=== PATIENT | male | born 1980 | race Caucasian/White ===

== ENCOUNTER → 2019-04-30 11:15 | Outpatient (CLI) | payer OTHER, SELFPAY ==
--- NOTE | ~2019-04-30 | XR_ITS ---
XR hand RT min 3V DATE: 04/30/2019 11:37 INDICATION: Injury, pain TECHNIQUE: 3 views COMPARISON: None FINDINGS: There is a virtually nondisplaced fracture of the neck of the fifth metacarpal bone consist ent with boxer's fracture. No other fracture or dislocation or other significant bony abnormality. IMPRESSION: Boxer's fracture neck of fifth metacarpal bone Reviewed, dictated and finalized at location A.
== END ==
PROVIDERS: PCP Nurse Practitioner; Visit Provider Nurse Practitioner
DX: S62.336A Displaced fracture of neck of fifth metacarpal bone, right hand, initial encounter for closed fracture (principal); X58.XXXA Exposure to other specified factors, initial encounter
CPT/HCPCS: 73130

== ENCOUNTER 2019-12-08 11:52 | Outpatient (NON) | payer OTHER, SELFPAY ==
[2019-12-08 23:56] LABS: SARS-CoV-2 RNA PCR Negative
== END 2019-12-08 11:53 ==
LOC: ANHCOVIDDT 11:53
PROVIDERS: PCP Nurse Practitioner; Visit Provider Nurse Practitioner
DX: Z20.828 Contact with and (suspected) exposure to other viral communicable diseases (principal)
CPT/HCPCS: 87635; C9803; U0003

== ENCOUNTER 2022-04-01 09:21 | Outpatient (CLI) | payer OTHER, SELFPAY ==
--- NOTE | 2022-04-01 09:34 | EST_ITS ---
Patient Info Name: Bam Sandhu Age: 42 years : 1980 Gender: Male Ht: 69 in Wt: 185 lbs BSA: 2.04 m2 HR: 65 bpm BP: 137 / 74 mmHg Heart Rhythm: Sinus Rhythm Exam Date: 04/01/2022 9:46 AM Exam Location: [facility] Stress Patient Status: Outpatient Admit Date: 04/01/2022 Staff Ordering Physician: Linda Enriquez NP Attending Provider: Linda Enriquez NP Exercise Technologist: Bethany Juarez CT Exercise Physician: Valdo Orr DO Exam Type: CA stress test treadmill Study Info Indications R07.89 - Other chest pain A treadmill exercise stress test was performed. Summary 1. 1. Negative Julián exercise stress test for ischemic ST changes by ECG criteria. 2. 2. Good functional capacity, achieving 12 METs of workload. 3. 3. Hypertensive response to exercise. 4. 4. Appropriate HR response to exercise. 5. 5. Appropriate HR recovery at 1 minute post exercise. 6. 6. No imaging with stress testing. 7. 7. Patient informed of the above results. Protocol: Julián Stress ECG Details Stage: REST Duration (min): 1 min : 6 sec Speed (mph): 0.0 Grade (%): 0 HR (bpm): 65 SBP (mmHg): 137 DBP (mmHg): 74 METS: --- Stage: REST Duration (min): 12 min : 13 sec Speed (mph): 0.0 Grade (%): 0 HR (bpm): 72 SBP (mmHg): 137 DBP (mmHg): 74 METS: --- Stage: STAGE 1 Duration (min): 1 min : 0 sec Speed (mph): 1.7 Grade (%): 10 HR (bpm): 91 SBP (mmHg): 137 DBP (mmHg): 74 METS: --- Stage: STAGE 1 Duration (min): 2 min : 0 sec Speed (mph): 1.7 Grade (%): 10 HR (bpm): 93 SBP (mmHg): 137 DBP (mmHg): 74 METS: --- Stage: STAGE 1 Duration (min): 3 min : 0 sec Speed (mph): 1.7 Grade (%): 10 HR (bpm): 95 SBP (mmHg): 149 DBP (mmHg): 70 METS: --- Stage: STAGE 2 Duration (min): 1 min : 0 sec Speed (mph): 2.5 Grade (%): 12 HR (bpm): 103 SBP (mmHg): 149 DBP (mmHg): 70 METS: --- Stage: STAGE 2 Duration (min): 2 min : 0 sec Speed (mph): 2.5 Grade (%): 12 HR (bpm): 107 SBP (mmHg): 165 DBP (mmHg): 56 METS: --- Stage: STAGE 2 Duration (min): 3 min : 0 sec Speed (mph): 2.5 Grade (%): 12 HR (bpm): 106 SBP (mmHg): 165 DBP (mmHg): 56 METS: --- Stage: STAGE 3 Duration (min): 1 min : 0 sec Speed (mph): 3.4 Grade (%): 14 HR (bpm): 124 SBP (mmHg): 166 DBP (mmHg): 57 METS: --- Stage: STAGE 3 Duration (min): 2 min : 0 sec Speed (mph): 3.4 Grade (%): 14 HR (bpm): 126 SBP (mmHg): 166 DBP (mmHg): 57 METS: --- Stage: STAGE 3 Duration (min): 3 min : 0 sec Speed (mph): 3.4 Grade (%): 14 HR (bpm): 130 SBP (mmHg): 184 DBP (mmHg): 56 METS: --- Stage: STAGE 4 Duration (min): 1 min : 0 sec Speed (mph): 4.2 Grade (%): 16 HR (bpm): 149 SBP (mmHg): 184 DBP (mmHg): 56 METS: ---
== END 2022-04-01 09:22 | disposition home or self-care (01) ==
PROVIDERS: PCP Family Medicine; Visit Provider Nurse Practitioner
DX: R07.89 Other chest pain (principal)
CPT/HCPCS: 93017

== ENCOUNTER → 2022-07-08 11:21 | Outpatient (CLI) | payer SELFPAY ==
--- NOTE | ~2022-07-08 | XR_ITS ---
EXAM: XR hand LT 2V DATE: 07/08/2022 11:59 HISTORY: M79.642 - Pain in left hand, left pinky injury . COMPARISON: None available. FINDINGS: Normal mineralization. Comminuted fracture of the distal fifth metacarpal, with mild anter ior and lateral angulation. No lytic or blastic lesion. Joint spaces and physes are maintained. No er osion or periosteal change. Soft tissues within normal limits. IMPRESSION: Comminuted mildly angulated fracture of the distal left fifth metacarpal. Reviewed, dictated and finalized at location K. IMPRESSION: Comminuted mildly angulated fracture of the distal left fifth metac arpal.
== END ==
PROVIDERS: PCP Nurse Practitioner Family; Visit Provider Nurse Practitioner Family
DX: S62.397A Other fracture of fifth metacarpal bone, left hand, initial encounter for closed fracture (principal); X58.XXXA Exposure to other specified factors, initial encounter
CPT/HCPCS: 73120

== ENCOUNTER → 2022-08-22 08:49 | Outpatient (CLI) | payer SELFPAY ==
--- NOTE | ~2022-08-22 | XR_ITS ---
Left Hand Technique: PA, oblique, and lateral views were obtained. Clinical History: Fifth metacarpal fracture follow-up COMPARISON: 07/08/2022 Findings: There is been minimal interval healing of fracture of the distal fifth metacarpal neck. Oss eous alignment is unchanged. Joint spaces are preserved. Soft tissues are unremarkable. Impression: Minimal interval routine healing of distal fifth metacarpal fracture. Osseous alignment is unchanged. Reviewed, dictated and finalized at location M. Impression: Minimal interval routine healing of distal fifth metacarpal fracture. Osseous a lignment is unchanged.
== END ==
PROVIDERS: PCP Nurse Practitioner Family; Visit Provider Nurse Practitioner Family
DX: S62.307D Unspecified fracture of fifth metacarpal bone, left hand, subsequent encounter for fracture with routine healing (principal); X58.XXXD Exposure to other specified factors, subsequent encounter
CPT/HCPCS: 73130

== ENCOUNTER → 2022-12-24 08:25 | Outpatient (CLI) | payer SELFPAY ==
--- NOTE | ~2022-12-24 | XR_ITS ---
EXAMINATION: XR_RIBSBI_CR INDICATION: Bilateral rib pain after fall TECHNIQUE: 3 views of the bilateral ribs were obtained. COMPARISON: 06/16/2014 FINDINGS: The lungs are free of acute opacities. No pleural effusion or pneumothorax. There is a nond isplaced acute anterolateral fracture of the right ninth rib. IMPRESSION: 1. Acute anterolateral fracture of the right ninth rib. 2. No acute cardiopulmonary abnormality. Reviewed, dictated and finalized at location L. 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
== END ==
PROVIDERS: PCP Nurse Practitioner Family; Visit Provider Nurse Practitioner Family
DX: S22.32XA Fracture of one rib, left side, initial encounter for closed fracture (principal); W19.XXXA Unspecified fall, initial encounter
CPT/HCPCS: 71110

== ENCOUNTER 2023-04-06 02:31 | Emergency (ER) | payer OTHER, SELFPAY ==
--- NOTE | ~2023-04-06 | CT_ITS ---
EXAMINATION: CT chest abdomen pelvis wo con DATE: 04/06/2023 04:51 INDICATION: Right flank pain TECHNIQUE: Computed tomography (CT) of the chest, abdomen, and pelvis was performed without intraveno us contrast. Automated exposure control and iterative reconstruction technique were employed. The dos e-length product was 539.43 mGy-cm. COMPARISON: CT abdomen pelvis dated 05/09/2009 and chest radiograph dated 06/06/2014 FINDINGS: CHEST CT: There are a few <3 mm pulmonary nodules in the bilateral upper lobes which given size and patient age and likely benign sequela of granulomatous disease. No pneumonia, pulmonary edema, pleural effusion or pneumothorax. Heart size is normal. No pericardial effusion. Thoracic aorta is normal in caliber. No pathologically enlarged thoracic lymphadenopathy. Chronic mild anterior wedging at T9-T11. Healing fractures of the lateral right 9th and 10th ribs. ABDOMEN/PELVIS CT: Liver, gallbladder, spleen, pancreas and bilateral adrenal glands are normal. 1 mm stones at lower po le calyces of both kidneys. No ureteral stones or hydronephrosis. Bowels including the appendix are n ormal. Bladder is normal. No free intraperitoneal gas or fluid. No pathologically enlarged abdominal or pelvic lymphadenopathy. Bones are unremarkable. IMPRESSION: 1. Bilateral nonobstructing nephrolithiasis. 2. No acute cardiopulmonary disease or acute intra-abdominal/pelvic process. 3. Healing lateral right 9th and 10th rib fractures. Reviewed, dictated and finalized at location A. CTOR OF DISTANCE LEARNING
[2023-04-06 02:34] VITALS: BP 131/69; PULSE 89; RESP 16; TEMP 36.6; O2SAT 98
[2023-04-06 03:34] LABS: Basophils Absolute Auto 0.1 K/mm3 (0.0-0.1); Basophils Percent Auto 1.4 % (0.2-1.2); Eosinophils Absolute Auto 0.1 K/mm3 (0-0.3); Eosinophils Percent Auto 3.3 % (0-4.4); Hemoglobin 13.5 g/dL (14.0-18.0); Immature Granulocyte Absolute 0.01 K/mm3 (0.00-0.031); Immature Granulocyte Percent A 0.3 % (0-0.5); Lymphocytes Absolute Auto 1.72 K/mm3 (0.9-3.2); Lymphocytes Percent Auto 46.6 % (18.3-44.2); Mean Corpuscular HGB Conc 32.9 g/dl (32-36); Mean Corpuscular Hemoglobin 32.2 pg (26-34); Mean Corpuscular Volume 97.9 fl (80-100); Mean Platelet Volume 10.8 fl (7.4-10.4); Monocytes Absolute Auto 0.3 K/mm3 (0.1-0.6); Monocytes Percent Auto 7.9 % (2.6-8.5); Neutrophils Absolute Auto 1.5 K/mm3 (1.3-6.7); Neutrophils Percent Auto 40.5 % (45.5-73.1); Platelet Count Result 219 k/mm3 (150-375); Red Blood Count 4.19 M/mm3 (4.6-6.20); White Blood Count 3.7 K/mm3 (4.5-10.0)
[2023-04-06 03:48] LABS: Appearance Urine Clear (Clear); Bilirubin Urine Negative (Negative); Blood Urine Negative (Negative); Color Urine Yellow (Yellow); Glucose Urine UA Negative (Negative); Ketones Urine Trace mg/dL (Negative); Leukocyte Esterase Ur Negative LEU/UL (Negative); Nitrate Urine Negative (Negative); Protein Urine Negative (Negative); Specific Grav Ur 1.019 (1.001-1.035); Urobilinogen Urine 0.2 mg/dL (<2.0)
[2023-04-06 03:51] LABS: Add Urine Microscopic? NO
[2023-04-06 04:03] LABS: Alanine Aminotransferase 25 U/L (6-50); Albumin Level 4.6 g/dL (3.5-5.1); Alkaline Phosphatase 64 U/L (38-126); Anion Gap 13 mmol/L (8-16); Aspartate Amino Transferase 34 U/L (17-59); Bilirubin,Total 0.5 mg/dL (0.2-1.3); Blood Urea Nitrogen 13 mg/dL (9-20); Calcium 9.2 mg/dL (8.4-10.2); Carbon Dioxide 19 mmol/L (22-30); Chloride 107 mmol/L (98-107); Estimated CRCL calculation 116 ml/min; Estimated Glomerular Filt Rate > 60; Glucose 121 mg/dL (65-110); Lipase 115 U/L (23-300); Potassium 3.8 mmol/L (3.4-5.0); Sodium 139 mmol/L (137-145)
--- NOTE | 2023-04-06 04:42 | ED.ABDPAIN ---
HPI - Abdominal Pain General Chief Complaint: Abdominal Pain Stated Complaint: R flank pain Time Seen by Provider: 04/06/23 02:53 Source: patient Limitations: no limitations History of Present Illness HPI narrative: Patient is a 43-year-old male presents to the emergency department complaining of right flank pain. Patient states he fell off a ladder on December 18 and broke 2 ribs and his right lateral lower ribs and has been having similar pain like this since then. Patient notes he has had partially for flare ups in which she gets worse about every couple weeks and states that the pain started flaring up approximate 24 hours ago, gradually, constant, feels like a burning sensation, does not radiate, has not tried any medications for the pain, slightly worse with movements, slightly better with rest. Patient denies any recurrent injuries. Patient admits to being evaluated by his primary care physician for a regional rib fracture. Patient denies cough, fever, pain with deep inspiration, difficulty breathing, hematuria, urinary discomfort, diarrhea, melena, nausea, vomiting, numbness, weakness, history kidney stones. Patient notes that the pain from the rib fractures is never gone away completely but it seems to flare up every couple weeks. Related Data Allergies Allergy/AdvReac Type Severity Reaction Status Date / Time No Known Allergies Allergy Verified 01/01/23 16:09 Review of Systems Review of Systems: A 10 system review of systems was completed on the patient and is negative except for what is stated in the HPI. Nursing and ancillary documentation was reviewed. [facility] Past Medical History Medical History Chronic daily headache Fracture of metacarpal of left hand, closed GERD (gastroesophageal reflux disease) Heart palpitations Hyperlipidemia Traumatic injury of rib Social History Social History Smoking status: Never smoker Alcohol intake: current Alcohol use details: occasionnally Substance use: never Substance use type: does not use Lack of Transportation: No Lack of Food: Never True Current Housing: I Have Housing Concerned About Future Housing: No Difficulty Paying Gas/Electric Bills: No Difficulty Paying for Meds: No Currently Unemployed: No Education: Bachelor's Degree Difficulty w/ Childcare or Family Care: No Living arrangements: with family Occupation/Education: occupation Gender identity (if verbalized by the patient): Male Sexual Orientation (if Verbalized by the Patient): Straight or Heterosexual Agree to blood products: Yes Comments At time of signature, I have reviewed and agree with nursing past medical, surgical, social and family history unless otherwise noted. Please see the nursing chart for further information. There is no relevant family history pertinent to the presenting complaint. Exam Narrative: CONST: No acute distress. Well nourished. HENMT: Head is normocephalic and atraumatic. Moist mucous membranes. No posterior oropharynx erythema. EYES: No conjunctival icterus, injection, or pallor. PERRL. NECK: No meningeal signs. RESP: Able to speak in full sentences. Normal respiratory effort. CTAB. CARDIO: Regular rate. Regular rhythm. 2+ DP and radial pulses bilaterally. GI: Nondistended. No tenderness to palpation. Soft. No palpable masses or hernias. : No CVA tenderness to palpation. SKIN: No rashes or lesions noted on exposed skin. NEURO: Oriented x3. Moves all extremities. EXTREM/MSK/BACK: No pedal edema. Chest wall is without crepitus or tenderness to palpation or palpable deformities. PSYCH: Normal affect. Course Vital Signs Vital signs: Vital Signs Temperature 97.9 F 04/06/23 02:34 Pulse Rate 89 04/06/23 02:34 Respiratory Rate 16 04/06/23 02:34 Blood Pressure 131/69 04/06/23 02:34 Pulse Oximetr
--- NOTE | 2023-04-06 04:46 | ECG_ITS ---
Measurements Intervals [place] Rate: 80 P: 13 PA: 156 QRS: -33 QRSD: 96 T: 33 QT: 380 QTc: 438 Interpretive Statements SINUS RHYTHM LEFT AXIS DEVIATION [QRS AXIS < -30] BORDERLINE ECG NO PREVIOUS ECG AVAILABLE FOR COMPARISON Electronically Signed On 04-06-2023 8:11:20 [employer] by Parker Nicole M.D.
[2023-04-06] MEDS: KETOROLAC 15 MG/ML VIAL (*BKC) IV PUSH (04:54)
[2023-04-06] MEDS: HYDROcodone/acetaminophen (*CRX) 5-325 MG TABLET 1 TAB PO (04:54)
[2023-04-06] MEDS: LIDOCAINE 5% PATCH 1 PATCH TRANSDERM (05:56)
== END 2023-04-06 06:10 | disposition home or self-care (01) ==
PROVIDERS: Emergency Provider Student in an Organized Health Care Education/Training Program; PCP Nurse Practitioner Family
DX: S22.41XK Multiple fractures of ribs, right side, subsequent encounter for fracture with nonunion (principal); M48.54XA Collapsed vertebra, not elsewhere classified, thoracic region, initial encounter for fracture; E78.5 Hyperlipidemia, unspecified; K21.9 Gastro-esophageal reflux disease without esophagitis; R94.31 Abnormal electrocardiogram [ECG] [EKG]; N20.0 Calculus of kidney; W11.XXXD Fall on and from ladder, subsequent encounter
CPT/HCPCS: 36415; 71250; 74176; 80053; 81003; 83690; 85025; 93005; 96374; 99284; A9270; J1885

== ENCOUNTER 2023-05-21 09:35 | Outpatient (CLI) | payer OTHER, SELFPAY ==
--- NOTE | ~2023-05-21 | US_ITS ---
EXAMINATION: US right upper quadrant DATE: 05/21/2023 10:11 INDICATION: Right upper quadrant abdominal pain TECHNIQUE: Multiple grayscale and Doppler ultrasound images of the abdomen were obtained. COMPARISON: CT dated 04/06/2023 FINDINGS: The visualized pancreatic body is normal in appearance. The pancreatic head and tail are obscured. Li alex has normal echogenicity and contour, with a smooth surface. No liver lesion identified. No intrah epatic biliary duct dilation suspected. Portal venous flow was seen in the hepatopetal, normal direct ion and has normal Doppler waveform. Visualized proximal inferior vena cava is normal. The gallbladde r is normal in appearance. There is no cholelithiasis. The common bile duct measures 3 mm, which is normal. Sonographic Sheldon sign was reported as negative by the septic technician.Visualized portion of the right kidney demonstrates normal echogenicity and contour with no hydronephrosis. IMPRESSION: 1. Normal right upper quadrant ultrasound. Reviewed, dictated and finalized at location A.
== END 2023-05-21 09:36 | disposition home or self-care (01) ==
PROVIDERS: PCP Family Medicine; Visit Provider Family Medicine
DX: R10.11 Right upper quadrant pain (principal)
CPT/HCPCS: 76705

== ENCOUNTER 2023-12-29 16:49 | Outpatient (CLI) | payer OTHER, SELFPAY ==
[2023-12-29 17:41] LABS: Influenza A QL RT-PCR Negative (Negative); Influenza B QL RT-PCR Negative (Negative); RSV RNA, RT-PCR Negative (Negative); SARS-CoV-2 RNA PCR Negative (Negative)
== END 2023-12-29 16:50 | disposition home or self-care (01) ==
LOC: ANHLAB 16:51
PROVIDERS: PCP Family Medicine; Visit Provider Family Medicine
DX: J06.9 Acute upper respiratory infection, unspecified (principal); Z20.822 Contact with and (suspected) exposure to COVID-19
CPT/HCPCS: 87637

== ENCOUNTER 2024-01-26 01:45 | Day surgery (SDC) | payer OTHER, SELFPAY ==
[2023-12-26 10:28] VITALS: BMI 27.3
--- NOTE | 2024-01-05 12:34 | PC.NURSE ---
spoke with patient regarding rescheduled EGD. Updated patient with new date and times. Patient's only change to medical history is pneumonia. Medication list updated. No questions at this time.
[2024-01-26 06:48] VITALS: BP 122/73; PULSE 69; RESP 18; TEMP 35.9; O2SAT 100; BMI 26.9
[2024-01-26] MEDS: LACTATED RINGERS 1,000 ML 150 ML IV CONT (06:57)
--- NOTE | 2024-01-26 07:49 | PM.HPGS ---
History of Present Illness History of Present Illness Consent: Risks, benefits, and alternatives have been discussed and questions answered. Patient agrees to proceed with procedure. Chief complaint: chronic pain, epigastric pain, GERD Narrative: Bam Sandhu is a 43 year old male with intermittent epigastric pain, never had egd Review of Systems Review of Systems: All systems reviewed & are unremarkable except as noted in HPI and below PMFSH Past Medical History Medical History Chronic daily headache Fracture of metacarpal of left hand, closed GERD (gastroesophageal reflux disease) Heart palpitations Hyperlipidemia Traumatic injury of rib Social History Social History Smoking status: Never smoker Alcohol intake: current Drinks per week: 4 Alcohol use details: occasionnally Substance use: never Substance use type: does not use Lack of Transportation: No Lack of Food: Never True Current Housing: I Have Housing Concerned About Future Housing: No Difficulty Paying Gas/Electric Bills: No Difficulty Paying for Meds: No Currently Unemployed: No Education: Bachelor's Degree Difficulty w/ Childcare or Family Care: No Living arrangements: with family Occupation/Education: occupation Gender identity (if verbalized by the patient): Male Sexual Orientation (if Verbalized by the Patient): Straight or Heterosexual Spiritual care concerns: No Agree to blood products: Yes Meds Home Medications and Allergies Home Medications Medication Instructions Recorded Confirmed Type pantoprazole 40 mg tablet,delayed 40 mg PO BID #120 tabs 10/28/23 01/26/24 Rx release atorvastatin 20 mg tablet (Lipitor) 20 mg PO QHS #90 tabs 01/05/24 01/26/24 Rx Allergies Allergy/AdvReac Type Severity Reaction Status Date / Time No Known Allergies Allergy Verified 01/26/24 06:47 Vital Signs Vital Signs - 24 hr 01/26/24 06:48 Temperature 96.6 F L Pulse Rate 69 Respiratory Rate 18 Blood Pressure 122/73 Pulse Oximetry 100 Oxygen Delivery Room Air Exam Const: General: comfortable and no acute distress HENMT: Face/Nose/Sinus: Normal nares present Eyes: General: appearance normal, both eyes and all related structures Neck: Neck: no JVD Resp: Auscultation: clear to auscultation bilaterally Cardio: Rate: regular rate Rhythm: regular rhythm GI: Inspection: non-distended GI Palp: Yes Soft to palpation Skin: General skin exam: normal color Neuro: General: gait normal Speech: normal speech Extrem: General: normal to inspection Psych: Mental Status: mental status grossly normal Assessment and Plan Assessment and plan (1) Chronic epigastric pain: Code(s): R10.13 - Epigastric pain; G89.29 - Other chronic pain Status: Acute Assessment and Plan: egd with bx
--- NOTE | 2024-01-26 07:50 | WPDANESEPPF ---
Anes - Initial Pre Proc Eval Procedure: Operation Date: 01/26/24 08:00 Proposed Procedures p Esophagogastroduodenoscopy - Priyank Ansari MD Date/Time: 01/26/24 07:50 Surgeon: Priyank Ansari MD Pre Op Diagnosis: chronic pain, epigastric pain, GERD Patient Data Age: 43 Gender: M Height: 1.75 m Weight: 82.5 kg Last Vital Signs Temp 96.6 F L 01/26/24 06:48 Pulse 69 01/26/24 06:48 Resp 18 01/26/24 06:48 BP 122/73 01/26/24 06:48 Pulse Ox 100 01/26/24 06:48 O2 Del Method Room Air 01/26/24 06:48 Allergies Allergy/AdvReac Type Severity Reaction Status Date / Time No Known Allergies Allergy Verified 01/26/24 06:47 Home Medications Medication Instructions Recorded Confirmed Type pantoprazole 40 mg tablet,delayed 40 mg PO BID #120 tabs 10/28/23 01/26/24 Rx release atorvastatin 20 mg tablet (Lipitor) 20 mg PO QHS #90 tabs 01/05/24 01/26/24 Rx Patient hx anesthesia problems: none Family hx anesthesia problems: none Results Review: All pre-operative results and documents have been reviewed as part of the pre-operative evaluation. [facility] Past Medical History Medical History Chronic daily headache Fracture of metacarpal of left hand, closed GERD (gastroesophageal reflux disease) Heart palpitations Hyperlipidemia Traumatic injury of rib Social History Social History Smoking status: Never smoker Alcohol intake: current Drinks per week: 4 Alcohol use details: occasionnally Substance use: never Substance use type: does not use Lack of Transportation: No Lack of Food: Never True Current Housing: I Have Housing Concerned About Future Housing: No Difficulty Paying Gas/Electric Bills: No Difficulty Paying for Meds: No Currently Unemployed: No Education: Bachelor's Degree Difficulty w/ Childcare or Family Care: No Living arrangements: with family Occupation/Education: occupation Gender identity (if verbalized by the patient): Male Sexual Orientation (if Verbalized by the Patient): Straight or Heterosexual Spiritual care concerns: No Agree to blood products: Yes Anes - Eval Final PreProcedure Day of Procedure 01/26/24 07:50 Patient weight: normal Heart: regular rate and rhythm Lungs: clear to auscultation Airway: Mallampati scale class II Neurological: alert and oriented Last oral intake: >/= 8 hours ASA classification: II Emergent: no Anesthetic plan: proceed Anesthesia type and monitoring: general GIVS and standard monitoring Results Review: All pre-operative results and documents have been reviewed as part of the pre-operative evaluation. Informed Consent: The patient's anesthetic plan and its attendant risks and benefits were discussed with the patient/family/POA. Questions were solicited and answers provided to the satisfaction of the patient/family/POA.
[2024-01-26 08:04] VITALS: BP 103/64; PULSE 64; RESP 15; O2SAT 97
[2024-01-26 08:14] VITALS: BP 113/65; PULSE 68; RESP 20; O2SAT 97
[2024-01-26 08:24] VITALS: BP 110/71; PULSE 61; RESP 20; O2SAT 96
--- NOTE | 2024-01-26 08:41 | SUR.PHASEII ---
Discharge delay due to ride availability.
== END 2024-01-26 08:41 | disposition home or self-care (01) ==
PROVIDERS: PCP Family Medicine; Visit Provider Internal Medicine Gastroenterology
PROC: 0DJ08ZZ Inspection of Upper Intestinal Tract, Via Natural or Artificial Opening Endoscopic (ICD-10-PCS; CPT 43235; principal; 2024-01-26 08:00)
DX: K21.9 Gastro-esophageal reflux disease without esophagitis (principal); E78.5 Hyperlipidemia, unspecified; R00.2 Palpitations; G89.29 Other chronic pain; R51.9 Headache, unspecified
CPT/HCPCS: 43239; 88305; J2003; J2704; J7120

== ENCOUNTER 2024-12-30 01:56 | Day surgery (SDC) | payer BC, SELFPAY ==
[2024-12-20 14:08] VITALS: BMI 28.0
--- OUTSIDE RECORDS SUMMARY | 2024-12-30 01:58 | XMS_ITS | Encounter Summary ---
Author Organization [facility] Address [address] [place] [id number] Care Team Providers Care Tourist Guide Name Role Phone Adam Hendricks MD Primary Care Provider Encounter Details Date Type Department Care Team (Latest Contact Info) Description 12/23/2017 Abstract [facility] , Matt Lynn MD Social History Tobacco Use Types Packs/Day Years Used Date Smoking Tobacco: Never Assessed Sex and Gender Information Value Date Recorded Sex Assigned at Male 04/19/2024 9:54 AM KEY HOLDER Legal Sex Male 5:27 PM CDT Gender Identity Not on file Sexual Orientation Not on file documented as of this encounter Plan of Treatment Not on file documented as of this encounter Visit Diagnoses Not on filedocumented in this encounter Care Teams Tourist Guide Relationship Specialty Start Date End Date Adam Hendricks MD [address] [place] [id number] PCP - General INTERNAL MEDICINE 04/19/24 documented as of this encounter
--- OUTSIDE RECORDS SUMMARY | 2024-12-30 01:58 | XMS_ITS | Clinical Summary ---
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 Legal Sex Male 5:27 PM CDT Gender Identity Not on file Sexual Orientation Not on file Last Filed Vital Signs Vital Sign Reading Time Taken Comments Blood Pressure 122/75 01/08/2013 12:39 PM HEMMER CHAINSTITCH Pulse 90 01/08/2013 12:39 PM HEMMER CHAINSTITCH Temperature - - Respiratory Rate - - Oxygen Saturation - - Inhaled Oxygen Concentration - - Weight 78.7 kg (173 lb 8 oz) 01/08/2013 12:39 PM HEMMER CHAINSTITCH Height 175.3 cm (5' 9) 01/08/2013 12:39 PM HEMMER CHAINSTITCH Body Mass Index 25.62 01/08/2013 12:39 PM HEMMER CHAINSTITCH Plan of Treatment Health Maintenance Due Date Last Done Comments Colorectal Cancer Screening Colonoscopy (10 Years) 1979 Annual Physical 1982 Hepatitis C 1997 Hepatitis B Vaccines (1 of 3 - 19+ 3-dose series) 1998 HPV Vaccines (1 - 3-dose SCDM series) 2006 COVID-19 Vaccine ( season) 2024 12/25/2020, 04/27/2020 Influenza Adult (#1) 2024 01/27/2024, 12/25/2020, 11/27/2019, Additional history exists DTaP, Tdap and Td Vaccines (8 - Td or Tdap) 04/09/2025 04/09/2015, 07/26/2013, 10/25/1994, Additional history exists Hepatitis A Vaccines Aged Out No long er eligible based on patient's age to complete this topic Meningococcal B Vaccine Aged Out No l onger eligible based on patient's age to complete this topic Meningococcal Vaccine Aged Out No claire windy eligible based on patient's age to complete this topic Pneumococcal Vaccine: Pediatrics (0 to 5 Years) and At-Risk Patients (6 to 49 Years) Aged Out No longer eligible based on patient's age to complete this topic RSV Immunizations Under 20 Months Aged Out No longer eligible based on patient's age to complete this topic Insurance [facility] Care Teams Rn Geriatric Relationship Specialty Start Date End Date Adam Hendricks MD [address] [place] [address] PCP - General INTERNAL MEDICINE 04/19/24
[2024-12-30 10:15] VITALS: BP 131/61; PULSE 61; RESP 18; TEMP 36.1; O2SAT 100; BMI 26.9
[2024-12-30] MEDS: LACTATED RINGERS 1,000 ML 150 ML IV CONT (10:19)
--- NOTE | 2024-12-30 10:45 | P.PNAN_ITS ---
Anes - Initial Pre Proc Eval Procedure: Operation Date: 12/30/24 11:30 Proposed Procedures p Screening Colonoscopy - Priyank Ansari MD Date/Time: 12/30/24 10:45 Surgeon: Priyank Ansari MD Pre Op Diagnosis: Screening Patient Data Age: 44 Gender: M Height: 1.75 m Weight: 82.5 kg Last Vital Signs Temp 36.1 C L 12/30/24 10:15 Pulse 61 12/30/24 10:15 Resp 18 12/30/24 10:15 BP 131/61 12/30/24 10:15 Pulse Ox 100 12/30/24 10:15 O2 Del Method Room Air 12/30/24 10:15 Allergies Allergy/AdvReac Type Severity Reaction Status Date / Time No Known Allergies Allergy Verified 12/30/24 10:14 Home Medications ?Medication ?Instructions ?Recorded ?Confirmed ?Type atorvastatin 20 mg tablet (Lipitor) 20 mg PO QHS #90 t abs 01/05/24 12/30/24 Rx Patient hx anesthesia problems: none Family hx anesthesia problems: none Results Review: All pre-operative results and documents have been reviewed as part of the pre- operative evaluation. [facility] Past Medical History Medical History BMI 27.0-27.9,adult BPPV (benign paroxysmal positional vertigo) Chest discomfort Colon cancer screening Dizziness Encounter to establish care Fatigue Fracture of metacarpal of left hand, closed GERD (gastroesophageal reflux disease) Heart palpitations History of hand fracture Hx of fracture of rib Hyperlipidemia New daily persistent headache Non-recurrent acute serous otitis media of right ear On half-way drug therapy Prediabetes Traumatic injury of rib (~12/2022) Surgical History Surgical History Status post labral repair of shoulder Right x2 - 10/2001, 05/2002 Social History Social History Smoking status: Never smoker Alcohol intake: current Drinks per week: 4 Alcohol use details: socially Substance use: never Substance use type: does not use Lack of Transportation: No Lack of Food: Never True Current Housing: I Have Housing Concerned About Future Housing: No Difficulty Paying Gas/Electric Bills: No Difficulty Paying for Meds: No Currently Unemployed: No Education: Bachelor's Degree Difficulty w/ Childcare or Family Care: No Living arrangements: with family Occupation/Education: occupation Gender identity (if verbalized by the patient): Male Sexual Orientation (if Verbalized by the Patient): Straight or Heterosexual Spiritual care concerns: No Agree to blood products: Yes Anes - Eval Final PreProcedure Day of Procedure 12/30/24 10:45 Patient weight: overweight Heart: regular rate and rhythm Lungs: clear to auscultation Airway: Mallampati scale class II Neurological: alert and oriented Last oral intake: >/= 8 hours ASA classification: II Emergent: no Anesthetic plan: proceed Anesthesia type and monitoring: general GIVS and standard monitoring Results Review: All pre-operative results and documents have been reviewed as part of the pre- operative evaluation. Informed Consent: The patient's anesthetic plan and its attendant risks and benefits were discussed with the patient/family/POA. Questions were solicited and answers provided to the satisfaction of the patient/family/POA.
--- NOTE | 2024-12-30 10:48 | P.HP_ITS ---
History of Present Illness History of Present Illness Consent: Risks, benefits, and alternatives have been discussed and questions answered. Patient agrees to proceed with procedure. Chief complaint: Screening Narrative: Bam Sandhu is a 44 year old male here for first screening colonoscopy Review of Systems Review of Systems: All systems reviewed & are unremarkable except as noted in HPI and below PMFSH Past Medical History Medical History BMI 27.0-27.9,adult BPPV (benign paroxysmal positional vertigo) Chest discomfort Colon cancer screening Dizziness Encounter to establish care Fatigue Fracture of metacarpal of left hand, closed GERD (gastroesophageal reflux disease) Heart palpitations History of hand fracture Hx of fracture of rib Hyperlipidemia New daily persistent headache Non-recurrent acute serous otitis media of right ear 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 Prediabetes Traumatic injury of rib (~12/2022) Surgical History Surgical History Status post labral repair of shoulder Right x2 - 10/2001, 05/2002 Social History Social History Smoking status: Never smoker Alcohol intake: current Drinks per week: 4 Alcohol use details: socially Substance use: never Substance use type: does not use Lack of Transportation: No Lack of Food: Never True Current Housing: I Have Housing Concerned About Future Housing: No Difficulty Paying Gas/Electric Bills: No Difficulty Paying for Meds: No Currently Unemployed: No Education: Bachelor's Degree Difficulty w/ Childcare or Family Care: No Living arrangements: with family Occupation/Education: occupation Gender identity (if verbalized by the patient): Male Sexual Orientation (if Verbalized by the Patient): Straight or Heterosexual Spiritual care concerns: No Agree to blood products: Yes Meds Home Medications and Allergies Home Medications ?Medication ?Instructions ?Recorded ?Confirmed ?Type atorvastatin 20 mg tablet (Lipitor) 20 mg PO QHS #90 t abs 01/05/24 12/30/24 Rx Allergies Allergy/AdvReac Type Severity Reaction Status Date / Time No Known Allergies Allergy Verified 12/30/24 10:14 Vital Signs Vital Signs - 24 hr 12/30/24 10:15 Temperature 97.0 F L Pulse Rate 61 Respiratory Rate 18 Blood Pressure 131/61 Pulse Oximetry 100 Oxygen Delivery Room Air Exam Const: General: comfortable and no acute distress HENMT: Face/Nose/Sinus: Normal nares present Eyes: General: appearance normal, both eyes and all related structures Neck: Neck: no JVD Resp: Auscultation: clear to auscultation bilaterally Cardio: Rate: regular rate Rhythm: regular rhythm GI: Inspection: non-distended GI Palp: Yes Soft to palpation Skin: General skin exam: normal color Extrem: General: normal to inspection Psych: Mental Status: mental status grossly normal Assessment and Plan Assessment and plan (1) Colon cancer screening: Code(s): Z12.11 - Encounter for screening for malignant neoplasm of colon Status: Acute Assessment and Plan: colonoscopy
[2024-12-30 11:07] VITALS: BP 105/66; PULSE 64; RESP 20; O2SAT 97
[2024-12-30 11:17] VITALS: BP 110/71; PULSE 64; RESP 17; O2SAT 100
[2024-12-30 11:27] VITALS: BP 110/72; PULSE 61; RESP 20; O2SAT 100
== END 2024-12-30 11:38 | disposition home or self-care (01) ==
PROVIDERS: PCP Internal Medicine; Referring Provider Internal Medicine; Visit Provider Internal Medicine Gastroenterology
PROC: 0DJD8ZZ Inspection of Lower Intestinal Tract, Via Natural or Artificial Opening Endoscopic (ICD-10-PCS; CPT 45378; principal; 2024-12-30 11:30)
DX: Z12.11 Encounter for screening for malignant neoplasm of colon (principal); K64.8 Other hemorrhoids; E78.5 Hyperlipidemia, unspecified; R73.03 Prediabetes; K21.9 Gastro-esophageal reflux disease without esophagitis; R53.83 Other fatigue; R00.2 Palpitations; Z79.899 Other long term (current) drug therapy; Z98.890 Other specified postprocedural states
CPT/HCPCS: 45378; J2003; J2704; J7120